=== PATIENT | male | born 1965 | race Caucasian/White ===

== ENCOUNTER 2016-08-21 10:59 | Emergency (ER) | payer OTHER | END 2016-08-21 13:41 | disposition home or self-care (01) | LOC: D.ER 10:59 | DX: S76.012A Strain of muscle, fascia and tendon of left hip, initial encounter (principal); X58.XXXA Exposure to other specified factors, initial encounter; Y93.89 Activity, other specified; Y92.89 Other specified places as the place of occurrence of the external cause; E11.9 Type 2 diabetes mellitus without complications ==

== ENCOUNTER → 2018-09-08 15:34 | Outpatient (CLI) | payer OTHER | END | disposition home or self-care (01) | LOC: D.CT 15:34 | DX: M54.2 Cervicalgia (principal) ==

== ENCOUNTER 2018-11-06 09:59 | Day surgery (SDC) | payer OTHER ==
[~2018-11-06] VITALS: Ht 180.3 cm; Wt 102.5 kg
[2018-11-06 10:34] LABS: HEMATOCRIT 44.5 % (42.0-54.0); MCH 29.2 pg (26.0-34.0); MCHC 33.7 g/dL (31.0-37.0); MCV 86.7 fL (80.0-100.0); RBC 5.13 10x6/uL (4.20-6.10); RDW 12.4 % (11.5-14.5); WBC 5.6 10x3/uL (4.8-10.8)
[2018-11-06 10:37] LABS: CALC OSMOLALITY 285 mosm/kg (275-300); CALCIUM 8.9 mg/dL (8.5-10.1); CARBON DIOXIDE 27.4 mmol/L (21.0-32.0); CHLORIDE - SERUM 102 mmol/L (98-107); POTASSIUM - SERUM 4.6 mmol/L (3.5-5.1); SODIUM 137 mmol/L (136-145); UREA NITROGEN 13 mg/dL (7-18); eGFR NON AFRICAN AMERICAN 83 mL/min (90-120)
[2018-11-06 10:39] LABS: GLUCOSE 311 mg/dL (74-106)
[2018-11-06] MEDS ORDERED: TRESIBA FL100 UNIT/1 (11:07)
[2018-11-06] MEDS ORDERED: GLUCOPHAGE500 MG PO (11:08)
[2018-11-06] MEDS ORDERED: GLUCOTROL 5 MG T5 MG PO (11:09)
[2018-11-06] MEDS ORDERED: LIPITOR20 MG PO (11:10)
[2018-11-06 11:21] VITALS: BP 148/88; Ht 180.3 cm; Wt 102.5 kg
--- NOTE | 2018-11-06 11:37 | NUR ---
1050 DR. AKERS NOTIFIED OF PT'S BS 311 THAT WAS DRAWN AT 1026. ORDERS RECEIVED TO GIVE 15 UNITS REGULAR INSULIN IV AND RECHECK BS IN 15 MINUTES AFTER MED GIVEN. DR. AKERS WANTS BS BELOW 300. 1130 CONTINUE TO WAIT FOR INSULIN FROM PHARMACY. RECHECKED BS. RESULTS 241. CALLED RESULTS TO LIZETT NEWSOME CRNA AND RELAYED DR. AKERS'S ORDERS AND THAT HE WANTED BS BELOW 300. RECEIVED ORDER FROM SAMMY NEWSOME NOT TO TREAT BS WITH INSULIN.
--- NOTE | 2018-11-06 14:17 | NUR ---
1410 PT RETURNED TO 2510 PT'S CASE WILL BE DELAYED 2 HOURS DUE TO PT HAS BEEN CHEWING TOBACCO/DIPPING TOBACCO. PT. STATES HE WISHES TO CANCEL TODAY AND RESCHEDULE AND DOES NOT WANT TO WAIT. PT. WANTS ME TO TAKE HIS IV OUT. IV DC'D WITH CATH INTACT. PT WILL CONTACT HIS DR'S OFFICE TO RESCHEDULE. DR. LITTLE INFORMED AND OR INFORMED.
== END 2018-11-06 14:20 | disposition home or self-care (01) ==
LOC: D.OPS 09:59 → D.PAN 16:00 → D.OPS 16:00
PROVIDERS: Anesthesiology; ATTEND Surgery
DX: R22.1 Localized swelling, mass and lump, neck (principal); Z53.29 Procedure and treatment not carried out because of patient's decision for other reasons; F17.220 Nicotine dependence, chewing tobacco, uncomplicated; Z01.812 Encounter for preprocedural laboratory examination

== ENCOUNTER 2020-03-27 06:35 | Day surgery (SDC) | payer OTHER ==
[2020-03-26 16:02] LABS: BASOPHILS 0.3 % (0-2); EOSINOPHILS 1.3 % (0-7); HEMATOCRIT 37.5 % (42.0-54.0); HEMOGLOBIN 12.3 g/dL (13.5-17.5); IMMATURE GRANULOCYTES 0.3 % (0-5); LYMPHOCYTES 21.8 % (15-50); MCH 29.3 pg (26.0-34.0); MCHC 32.8 g/dL (31.0-37.0); MCV 89.3 fL (80.0-100.0); MEAN PLATELET VOLUME 10.3 fL (7.4-10.4); MONOCYTES 8.1 % (2-11); NEUTROPHILS 68.2 % (40-80); PLATELET COUNT 267 10x3/uL (130-400); RDW 12.9 % (11.5-14.5)
[2020-03-26 16:14] LABS: ANION GAP 11.2 mmol/L (8-16); CALCIUM 8.5 mg/dL (8.5-10.1); CARBON DIOXIDE 27.1 mmol/L (21.0-32.0); CREATININE - SERUM 1.4 mg/dL (0.6-1.3); POTASSIUM - SERUM 4.3 mmol/L (3.5-5.1)
[~2020-03-27] VITALS: Ht 180.3 cm; Wt 101.6 kg
--- NOTE | ~2020-03-27 | OP ---
PATIENT NAME: GEOVANNA BOWER MEDICAL RECORD: [id number] :67 LOCATION:D.OPS ADMISSION DATE: SURGEON: SUNNY DOWNEY MD DATE OF OPERATION: 03/27/2020 PREOPERATIVE DIAGNOSES: 1. A 2.5 cm left posterior neck cyst 2. Hypertension. POSTOPERATIVE DIAGNOSES: 1. A 2.5 cm left posterior neck cyst 2. Hypertension. PROCEDURE: Excision of 2.5 cm left posterior neck cyst. SURGEON: Sunny Downey MD REPORT OF PROCEDURE: The patient was placed on the right lateral decubitus position and the posterior neck was prepped and draped in sterile fashion. A transverse incision was made over the palpable lesion. Electrocautery was used to dissect through the subcutaneous tissues. There was a thin layer of muscular tissue, which we dissected through and once we penetrated this, we did encounter some irritated fatty tissue. As we started to come around this fatty tissue, there was a lesion that was noted to be within this tissue. This lesion had a thick coating around it and it did not appear to be adherent to any of the surrounding structures. As we came around this structure, we were able to completely excise it without penetrating the cavity. The mass appeared to be completely excised and all the tissue around it appeared to be normal fatty tissue. We then irrigated out this wound with normal saline. The muscular layer was reapproximated with interrupted 3-0 Vicryl and the skin was closed with running subcutaneous 5-0 Monocryl. A 10 mL of 0.25% Marcaine with epinephrine was infused into the surrounding tissues. The incision was measured out, it was 3.5 cm in length. COMPLICATIONS: None. CONDITION: Stable. ANESTHESIA: General endotracheal and local. BLOOD LOSS: Minimal. TRANSINT:[id number] Voice Confirmation ID: [id number] DOCUMENT ID: [id number] SUNNY DOWNEY MD CC: BRIDGET TELLO [id number] DICTATION DATE: 03/27/[address] ENGINEER FREIGHT: 03/27/20 1109 [facility] [address] [place] [address]
[~2020-03-27 06:35] MED LIST: COZAAR25 MG PO; GLUCOPHAGE500 MG PO; GLUCOTROL 5 MG T5 MG PO; LIPITOR20 MG PO; TRESIBA FL100 UNIT/1 SQ
[2020-03-27 07:27] VITALS: BP 136/81; Ht 180.3 cm; Wt 101.6 kg
[2020-03-27] MEDS ORDERED: HYDROCODON-ACE1 EA10 PO (09:38)
--- NOTE | 2020-03-27 10:59 | NUR ---
1050 IV [id number]. AND PRESSURE HELD X 10 MIN
--- NOTE | 2020-03-27 12:41 | NUR ---
1050 IV REMOVED AND PRESSURE HELD. 1115 PAIN / MEDICATED FOR PAIN. 1150 PAIN 09/17 1200 D/C HOME
== END 2020-03-27 12:00 | disposition home or self-care (01) ==
LOC: D.OPS 06:35 → D.PAN 09:45 → D.OPS 12:00
PROVIDERS: ATTEND Surgery
DX: R22.1 Localized swelling, mass and lump, neck (principal); I10 Essential (primary) hypertension